=== PATIENT | male | born 1965 | race Caucasian/White ===

== ENCOUNTER 2019-03-06 16:28 | Emergency (ER) | payer OTHER ==
[2019-03-06] MEDS ORDERED: Cephalexin 500 MG Cap PO ONE (16:38)
[2019-03-06] MEDS ORDERED: Lidocaine 1% 30 ML SDV INJECT ONE (16:39)
--- NOTE | 2019-03-06 16:48 | EDM.PDOC ---
Scribed by Rina Olivo 03/06/19 1657 for Wilder Slaughter MD ED HPI GENERAL MEDICAL PROBLEM - General Chief Complaint: General Stated Complaint: HOOK IN HIS RIGHT HAND PER PT Time Seen by Provider: 03/06/19 16:36 Source of Information: Reports: Patient, RN, RN Notes Reviewed History Limitations: Reports: No Limitations - History of Present Illness INITIAL COMMENTS - FREE TEXT/NARRATIVE: Patient presents to ER with complaint of a fishhook in his right hand. Denies any other injury. Tetanus is up to date. Patient has history of splenectomy. Onset: Today, Sudden Duration: Constant Location: Reports: Upper Extremity, Right Quality: Reports: Ache Severity: Mild Improves with: Reports: None Worsens with: Reports: None Associated Symptoms: Reports: No Other Symptoms - Related Data Allergies Allergy/AdvReac Type Severity Reaction Status Date / Time No Known Allergies Allergy Verified 03/06/19 16:35 Home Meds: Home Meds Lisinopril 10 mg PO DAILY 03/06/19 [History] Omeprazole 20 mg PO DAILY 03/06/19 [History] hydroCHLOROthiazide [Hydrochlorothiazide] 25 mg PO DAILY 03/06/19 [History] Past Medical History Cardiovascular History: Reports: Hypertension - Past Surgical History GI Surgical History: Reports: Other (See Below) (Splenectomy) Social & Family History - Family History Family Medical History: Noncontributory - Living Situation & Occupation Living situation: Reports: with Family ED ROS GENERAL - Review of Systems Review Of Systems: ROS reveals no pertinent complaints other than HPI. ED EXAM, GENERAL - Physical Exam Exam: See Below Exam Limited By: No Limitations General Appearance: Alert, WD/WN, No Apparent Distress Head: Atraumatic, Normocephalic Respiratory/Chest: No Respiratory Distress Cardiovascular: Normal Peripheral Pulses Extremities: Other (Fish hook Rt hand 1st/2nd digit interspace). No: Joint Swelling Neurological: Alert, Oriented, No Motor/Sensory Deficits Psychiatric: Normal Mood Skin Exam: Warm, Dry, Intact, Normal Color, No Rash Course - Vital Signs Last Recorded V/S: Last Vital Signs Temp 100.2 F 03/06/19 16:37 Pulse 88 03/06/19 16:37 Resp 16 03/06/19 16:37 BP 156/97 H 03/06/19 16:37 Pulse Ox 96 03/06/19 16:37 - Orders/Labs/Meds Meds: Medications Discontinued Medications Generic Name Dose Route Start Last Admin Trade Name Amish PRN Reason Stop Dose Admin Cephalexin 500 mg 03/06/19 16:38 Keflex PO 03/06/19 16:39 ONETIME ONE Lidocaine HCl 30 ml 03/06/19 16:39 Xylocaine-Mpf 1% INJECT 03/06/19 16:40 ONETIME ONE - Re-Assessments/Exams Free Text/Narrative Re-Assessment/Exam: 03/06/19 16:40 Fish hook removal from Rt hand. Area cleaned and prepped by RN with hibiclens and sterile water. Area of fish hook locally blocked with lidocaine 1% 5cc. Using clean tech. the eye of the hook and lure were cut free and removed with side cutter. The hook shank grasped with needle nosed plier and advanced until the hook and rudi were exposed through the skin and removed with side cutter. The remaining hook backed out the entry wound. No residual foreign body. Wound was cleansed, and dried, bacitracin ointment applied, and dressing by RN. No complications. Departure - Departure Time of Disposition: 17:20 Disposition: Home, Self-Care 01 Condition: Good Clinical Impression: Fish hook injury of hand Qualifiers: Encounter type: initial encounter Laterality: right Qualified Code(s): S69.91XA - Unspecified injury of right wrist, hand and finger(s), initial encounter - Discharge Information *PRESCRIPTION DRUG MONITORING PROGRAM REVIEWED*: Not Applicable *COPY OF PRESCRIPTION DRUG MONITORING REPORT IN PATIENT TONYA: Not Applicable Instructions: Puncture Wound, [id number]-[id number] Forms: ED Department Discharge Additional Instructions: Rx: Cephalexin 500mg Follow up in clinic or ER if any signs of infection develop. I have read and agree with the documentation that has been completed regarding this visit. By signing this record, I attest that the documentation was completed in my physical presence and is an accurate record of the encounter.
== END 2019-03-06 17:08 | disposition home or self-care (01) ==
LOC: DL.ED 16:28
DX: S60.551A Superficial foreign body of right hand, initial encounter (principal); I10 Essential (primary) hypertension; Z79.899 Other long term (current) drug therapy; Z90.81 Acquired absence of spleen
CPT/HCPCS: 10120; 99282; A9270; J2001